=== PATIENT | male | born 1935 | race Caucasian/White ===

== ENCOUNTER 2020-07-10 18:24 | Emergency (ER) | payer MEDICARE, OTHER ==
[~2020-07-10 18:24] MED LIST: ASP325TEC; DILTIAZEM; DILTIAZEM HCL; NF-LISIN40
--- NOTE | 2020-07-10 18:37 | ED General ---
General Stated Complaint: SOA History of Present Illness Date Seen by Provider: Jul 10, 2020 Time Seen by Provider: 18:35 Initial Comments 85-year-old male presents with generalized malaise. Patient reports that he just doesn't feel well. That is "getting old" maybe a little cough but that is chronic. No fevers or chills, no complaints of nausea vomiting. No complaints of pain. Patient mainly states that he just is more fatigued than normal. Patient has no known sick contacts. Patient does have a history of pneumonia and COPD. No other systemic complaints. Patient reports that the fatigue has been for a couple days. Allergies and Home Medications Allergies Coded Allergies: No Known Drug Allergies (Unverified , 07/10/20) Patient Home Medication List Home Medication List Reviewed: Yes Review of Systems Review of Systems Constitutional: see HPI; No chills, No fever; malaise Respiratory: see HPI, cough, short of breath Cardiovascular: No chest pain, No palpitations Gastrointestinal: No abdominal pain, No diarrhea, No nausea, No vomiting Musculoskeletal: no symptoms reported Skin: no symptoms reported Psychiatric/Neurological: No Symptoms Reported Past Nosvwxl-Vnfius-Dfwchn Hx Past Med/Social Hx: Reviewed Nursing Past Med/Soc Hx Patient Social History Recent Foreign Travel: No Contact w/Someone Who Travel: No Past Medical History Reproductive Disorders: No Physical Exam Vital Signs Vital Signs - First Documented 07/10/20 18:40 Temp 36.9 Pulse 81 Resp 24 B/P (MAP) 157/81 (106) Capillary Refill : Height, Weight, BMI Height: '" Weight: lbs. oz. 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 Skin: Normal Color, Warm/Dry Focused Exam Lactate Level 07/10/20 18:46: Lactic Acid Level 3.89*H 07/10/20 20:49: Lactic Acid Level 2.56*H Lactic Acid Level Laboratory Tests Test 07/10/20 18:46 12/23/20 20:49 Lactic Acid Level 3.89 MMOL/L (0.50-2.00) *H 2.56 MMOL/L (0.50-2.00) *H Progress/Results/Core Measures Suspected Sepsis SIRS Temperature: Pulse: Respiratory Rate: Laboratory Tests 07/10/20 18:42: White Blood Count 3.1L Blood Pressure / Mean: 07/10/20 18:46: Lactic Acid Level 3.89*H 07/10/20 20:49: Lactic Acid Level 2.56*H Laboratory Tests 07/10/20 18:42: Creatinine 1.05, Platelet Count 145, Total Bilirubin 4.6H Results/Orders Lab Results Laboratory Tests Test 07/10/20 18:42 07/10/20 18:46 07/10/20 19:39 07/10/20 20:49 Range/Units White Blood Count 3.1 L 4.3-11.0 10^3/uL Red Blood Count 4.05 L 4.35-5.85 10^6/uL Hemoglobin 13.2 L 13.3-17.7 G/DL Hematocrit 40 40-54 % Mean Corpuscular Volume 98 80-99 FL Mean Corpuscular Hemoglobin 33 25-34 PG Mean Corpuscular Hemoglobin Concent 33 32-36 G/DL Red Cell Distribution Width 14.9 H 10.0-14.5 % Platelet Count 145 130-400 10^3/uL Mean Platelet Volume 12.9 H 7.4-10.4 FL Immature Granulocyte % (Auto) 1 % Neutrophils (%) (Auto) 73 42-75 % Lymphocytes (%) (Auto) 19 12-44 % Monocytes (%) (Auto) 8 0-12 % Eosinophils (%) (Auto) 0 0-10 % Basophils (%) (Auto) 0 0-10 % Neutrophils # (Auto) 2.3 1.8-7.8 X 10^3 Lymphocytes # (Auto) 0.6 L 1.0-4.0 X 10^3 Monocytes # (Auto) 0.2 0.0-1.0 X 10^3 Eosinophils # (Auto) 0.0 0.0-0.3 10^3/uL Basophils # (Auto) 0.0 0.0-0.1 10^3/uL Immature Granulocyte # (Auto) 0.0 0.0-0.1 10^3/uL Neutrophils % (Manual) 62 % Lymphocytes % (Manual) 12 % Monocytes % (Manual) 8 % Eosinophils % (Manual) 1 % Basophils % (Manual) 0 % Band Neutrophils 9 % Atypical Lymphocytes 5 % Reactive Lymphocytes 3 % Poikilocytosis 1+ Macrocytosis 1+ Elliptocytes SLIGHT Sodium Level 136 135-145 MMOL/L Potassium Level 4.2 3.6-5.0 MMOL/L Chloride Level 97 L 98-107 MMOL/L Carbon Dioxide Level 24 21-32 MMOL/L Anion Gap 15 H 5-14 MMOL/L Blood Urea Nitrogen 35 H 7-18 MG/DL Creatinine 1.05 0.60-1.30 MG/DL Estimat Glomerular Filtration Rate > 60 BUN/Creatinine Ratio 33 Glucose Level 112 H 70-105 MG/DL Calcium Level 9.2 8.5-10.1 MG/DL Corrected Calcium 9.1 8.5-10.1 MG/DL Magnesium Level 2.3 1.6-2.4 MG/DL Total Bilirubin 4.6 H 0.1-1.0 MG/DL Aspartate Amino Transf (AST/SGOT) 141 H 5-34 U/L Alanine Aminotransferase (ALT/SGPT) 171 H 0-55 U/L Alkaline Phosphatase 125 40-136 U/L Troponin I < 0.30 <0.30 NG/ML C-Reactive Protein 5.13 H <0.50 MG/DL Pro-B-Type Natriuretic Peptide 25877.0 H <75.0 PG/ML Total Protein 7.0 6.4-8.2 GM/DL Albumin 4.1 3.2-4.5 GM/DL Lactic Acid Level 3.89 *H 2.56 *H 0.50-2.00 MMOL/L Urine Color JANAY H Urine Clarity CLEAR Urine pH 5.5 5-9 Urine Specific [place] >=1.030 1.016-1.022 Urine Protein 1+ H NEGATIVE Urine Glucose (UA) NEGATIVE NEGATIVE Urine Ketones NEGATIVE NEGATIVE Urine Nitrite NEGATIVE NEGATIVE Urine Bilirubin 1+ H NEGATIVE Urine Urobilinogen 1.0 < = 1.0 MG/DL Urine Leukocyte Esterase NEGATIVE NEGATIVE Urine RBC (Auto) 1+ H NEGATIVE Urine RBC 0-2 /HPF Urine WBC 0-2 /HPF Urine Squamous Epithelial Cells 0-2 /HPF Urine Crystals NONE /LPF Urine Bacteria NEGATIVE /HPF Urine Casts PRESENT /LPF Urine Hyaline Casts 25-50 H /LPF Urine Mucus MODERATE H /LPF Urine Culture Indicated NO Micro Results Microbiology 07/10/20 Influenza Types A,B Antigen (VILMA) - Final, Complete My Orders Orders - ANGI TAPIA DO Chest Pa/Lat (2 View) (07/10/20 18:37) Comprehensive Metabolic Panel (07/10/20 18:37) Lactic Acid Analyzer (07/10/20 18:37) Magnesium (07/10/20 18:37) Procalcitonin (Pct) (07/10/20 18:37) Ua Culture If Indicated (07/10/20 18:37) Influenza A And B Antigens (07/10/20 18:37) Probnp Fs (07/10/20 18:37) Crp Fs (07/10/20 18:37) Troponin I Fs (07/10/20 18:37) Ed Iv/Invasive Line Start (07/10/20 18:37) Ekg Tracing (07/10/20 18:37) Monitor-Rhythm Ecg Trace Only (07/10/20 18:37) Coronavirus Sars-Cov-2 So 2018 (07/10/20 18:37) Cbc With Automated Diff (07/10/20 19:17) Blood Culture (07/10/20 19:19) Ed Iv/Invasive Line Start (07/10/20 19:19) Ns Iv 1000 Ml (Sodium Chloride 0.9%) (07/10/20 19:30) Manual Differential (07/10/20 18:42) Ct Abdomen/Pelvis W (07/10/20 19:33) Iohexol Injection (Omnipaque 350 Mg/Ml 1 (07/10/20 19:45) Received Contrast (Hold Metformin- Contr (07/10/20 19:45) Sodium Chloride Flush (Catheter Flush Sy (07/10/20 19:45) Ns (Ivpb) (Sodium Chloride 0.9% Ivpb Bag (07/10/20 19:45) Medications Given in ED Current Medications Medications Dose Ordered Sig/Vishal Route Start Time Stop Time Status Last Admin Dose Admin Iohexol 100 ml ONCE ONCE IV 07/10/20 19:45 07/10/20 19:46 DC 07/10/20 20:03 100 ML Sodium Chloride 10 ml NEEDED PRN IV 07/10/20 19:45 07/10/20 20:03 10 ML Sodium Chloride 100 ml ONCE ONCE IV 07/10/20 19:45 07/10/20 19:46 DC 07/10/20 20:03 100 ML Vital Signs/I&O 07/10/20 18:40 Temp 36.9 Pulse 81 Resp 24 B/P (MAP) 157/81 (106) Capillary Refill : Progress Note : Time: 21:26 Progress Note Patient reports he feeling better following IV fluids. He had a significant improvement in his lactic acid following treatment. I reviewed CT scanner x-ray and all other labs with patient. Patient was offered admission for observation and further evaluation at [facility]. Patient states he prefer to go home and will return if symptoms worsen. Patient voices understanding of risks. Discussed with him that likely is a viral illness. He does however have a slight elevation in his bilirubin however CT does not show any significant cholangitis, he has no pain in the right upper quadrant. There is some cholelithiasis. I believe this can be worked up outpatient at this time since patient's requesting discharge. I recommend he follow with his primary care provider as soon as possible for further outpatient evaluation. ECG Initial ECG Impression Date: Jul 10, 2020 Initial ECG Impression Time: 18:52 Initial ECG Rate: 89 Comment hr 89, paced, no acute changes, Diagnostic Imaging Diagonstic Imaging: Xray Plain Films/CT/US/NM/MRI: chest Comments [facility], [facility]. [place], [place] NAME: CRYSTAL CARNEY [facility] REC#: [id number] PT STATUS: REG ER : 1935 PHYSICIAN: ANGI TAPIA DO ADMIT DATE: 07/10/20/ER FS Signed Date of Exam:07/10/20 CHEST PA/LAT (2 VIEW) INDICATION: Malaise and shortness of breath. Comparison is made with prior examination from 01/27/2016. FINDINGS: There is cardiomegaly. There has been a previous median sternotomy. Pacemaker overlies the left hemithorax. There is no pleural fusion or pneumothorax. Mediastinum is unremarkable. There is some minimal discoid atelectasis in the lung bases. IMPRESSION: Cardiomegaly and minimal discoid atelectasis in the lung bases. Dictated by: Dictated on workstation # [id number] Dict: 07/10/201910 Trans: 07/10/201916 [facility] [id number] Interpreted by: NEGRO BELTRAN MD Electronically signed by: NEGRO BELTRAN MD 07/10/201916 [facility]. [place], [place] NAME: CRYSTAL CARNEY [facility] REC#: [id number] PT STATUS: REG ER : 1935 PHYSICIAN: ANGI TAPIA DO ADMIT DATE: 07/10/20/ER FS Signed Date of Exam:07/10/20 CT ABDOMEN/PELVIS W PROCEDURE: CT abdomen and pelvis with contrast. TECHNIQUE: Multiple contiguous axial images were obtained through the abdomen and pelvis after administration of intravenous contrast. Auto Exposure Controls were utilized during the CT exam to meet ALARA standards for radiation dose reduction. All CT scans use one or more of the following dose optimizing techniques: automated exposure control, MA and/or KvP adjustment based on patient size and exam type or iterative reconstruction. INDICATION: Shortness of breath, fatigue and weakness with increased bilirubin. FINDINGS: There is cardiomegaly. There is some patchy bibasilar atelectasis and/or pneumonitis. Liver is normal in size and without focal lesion. There is cholelithiasis. There is no biliary ductal dilatation. Spleen is normal. The pancreas and adrenal glands are unremarkable. There is a cyst in the left kidney. Right kidney is grossly normal. The aorta appears to be nonaneurysmal. Bowel gas pattern is nonspecific. There is no free air. There is no ascites. There are no focal inflammatory changes. Appendix is normal. Evaluation of the pelvic structures is markedly limited due to bilateral hip arthroplasties producing significant beam hardening artifact. IMPRESSION: 1. Patchy bibasilar atelectasis and/or pneumonitis. 2. Cardiomegaly. 3. Cholelithiasis. 4. No other acute abnormality in the abdomen or pelvis. Dictated by: Dictated on workstation # [id number] Dict: 07/10/202017 Trans: 07/10/202109 [facility] [id number] Interpreted by: NEGRO BELTRAN MD Electronically signed by: NEGRO BELTRAN MD 07/10/202109 Departure Impression Primary Impression: Viral syndrome Additional Impression: Cholelithiasis Qualified Codes: K80.80 - Other cholelithiasis without obstruction Disposition: HOME, SELF-CARE Condition: Stable Departure-Patient Inst. Referrals: SAM GONZALEZ MD (PCP) Primary Care Physician Patient Instructions: Viral Syndrome (DC), Gallstones (DC) Add. Discharge Instructions: Please follow-up with your primary care for recheck of symptoms Wednesday or Wednesday of next week Please have an outpatient ultrasound of her gallbladder next week if possible Return to the ER with any worsening of symptoms, nausea, vomiting and right upper quadrant pain, fevers or chills for reevaluation. Drink plenty of fluids ANGI TAPIA DO Jul 10, 2020 18:37
--- NOTE | 2020-07-10 19:16 | Diagnostic Imaging Report ---
INDICATION: Malaise and shortness of breath. Comparison is made with prior examination from 01/27/2016. FINDINGS: There is cardiomegaly. There has been a previous median sternotomy. Pacemaker overlies the left hemithorax. There is no pleural fusion or pneumothorax. Mediastinum is unremarkable. There is some minimal discoid atelectasis in the lung bases. IMPRESSION: Cardiomegaly and minimal discoid atelectasis in the lung bases. Dictated by: Dictated on workstation # [id number]
[2020-07-10 19:22] LABS: BASOPHILS % (AUTO) 0 % (0-10); EOSINOPHILS % (AUTO) 0 % (0-10); HEMATOCRIT 40 % (40-54); HEMOGLOBIN 13.2 G/DL (13.3-17.7); LYMPHOCYTES # (AUTO) 0.6 X 10^3 (1.0-4.0); LYMPHOCYTES % (AUTO) 19 % (12-44); MEAN CORPUSCULAR HEMOGLOBIN 33 PG (25-34); MEAN CORPUSCULAR HGB CONC 33 G/DL (32-36); MEAN CORPUSCULAR VOLUME 98 FL (80-99); MEAN PLATELET VOLUME 12.9 FL (7.4-10.4); MONOCYTES # (AUTO) 0.2 X 10^3 (0.0-1.0); MONOCYTES % (AUTO) 8 % (0-12); NEUTROPHILS # (AUTO) 2.3 X 10^3 (1.8-7.8); NEUTROPHILS % (AUTO) 73 % (42-75); PLATELET COUNT 145 10^3/uL (130-400); WHITE BLOOD COUNT 3.1 10^3/uL (4.3-11.0)
[2020-07-10 19:23] LABS: ATYPICAL LYMPHOCYTES 5 %; BAND NEUTROPHILS 9 %; BASOPHILS % (MANUAL) 0 %; EOSINOPHILS % (MANUAL) 1 %; LYMPHOCYTES % (MANUAL) 12 %; MONOCYTES % (MANUAL) 8 %; NEUTROPHILS % (MANUAL) 62 %; POIKILOCYTOSIS 1+; REACTIVE LYMPHOCYTES 3 %
[2020-07-10 19:24] LABS: ELLIPT/OVALOCYTES SLIGHT
[2020-07-10 19:26] LABS: CARBON DIOXIDE 24 MMOL/L (21-32); CHLORIDE 97 MMOL/L (98-107); POTASSIUM 4.2 MMOL/L (3.6-5.0); SODIUM 136 MMOL/L (135-145)
[2020-07-10 19:27] LABS: ALANINE AMINOTRANSFERASE 171 U/L (0-55); ALBUMIN 4.1 GM/DL (3.2-4.5); ALKALINE PHOSPHATASE 125 U/L (40-136); BILIRUBIN,TOTAL 4.6 MG/DL (0.1-1.0); BUN/CREATININE RATIO 33; CALCIUM 9.2 MG/DL (8.5-10.1); CREATININE SERUM 1.05 MG/DL (0.60-1.30); GFR ESTIMATED > 60; GLUCOSE 112 MG/DL (70-105); MAGNESIUM 2.3 MG/DL (1.6-2.4)
[2020-07-10] MEDS ORDERED: NS IV 1000 ML 1,000 ML IV SCH (19:30)
[2020-07-10] MEDS ORDERED: IOHEXOL 350 MG/ML 100 ML (OMNIPAQUE 350) VIAL IV ONE (19:45)
[2020-07-10] MEDS ORDERED: CATHETER FLUSH 10 ML SYR IV PRN (19:45)
[2020-07-10] MEDS ORDERED: HOLD METFORMIN - RECEIVED CONTRAST 20 ML VIAL IV SCH (19:45)
[2020-07-10] MEDS ORDERED: NS 100 ML (IVPB) BAG IV ONE (19:45)
[2020-07-10 20:01] LABS: COLOR,URINE AMBER
[2020-07-10 20:02] LABS: CLARITY,URINE CLEAR; GLUCOSE, URINE (UA) NEGATIVE (NEGATIVE); KETONES,URINE NEGATIVE (NEGATIVE); NITRITE,URINE NEGATIVE (NEGATIVE); PH,URINE 5.5 (5-9); PROTEIN,URINE 1+ (NEGATIVE)
[2020-07-10 20:05] LABS: BACTERIA,URINE NEGATIVE /HPF; BILIRUBIN,URINE 1+ (NEGATIVE); HYALINE CASTS, URINE 25-50 /LPF; LEUKOCYTE ESTERASE ,URINE NEGATIVE (NEGATIVE); RBC,URINE 0-2 /HPF; SQUAMOUS EPITHELIAL CELL,UR 0-2 /HPF; WBC,URINE 0-2 /HPF
--- NOTE | 2020-07-10 21:03 | Diagnostic Imaging Report ---
PROCEDURE: CT abdomen and pelvis with contrast. TECHNIQUE: Multiple contiguous axial images were obtained through the abdomen and pelvis after administration of intravenous contrast. Auto Exposure Controls were utilized during the CT exam to meet ALARA standards for radiation dose reduction. All CT scans use one or more of the following dose optimizing techniques: automated exposure control, MA and/or KvP adjustment based on patient size and exam type or iterative reconstruction. INDICATION: Shortness of breath, fatigue and weakness with increased bilirubin. FINDINGS: There is cardiomegaly. There is some patchy bibasilar atelectasis and/or pneumonitis. Liver is normal in size and without focal lesion. There is cholelithiasis. There is no biliary ductal dilatation. Spleen is normal. The pancreas and adrenal glands are unremarkable. There is a cyst in the left kidney. Right kidney is grossly normal. The aorta appears to be nonaneurysmal. Bowel gas pattern is nonspecific. There is no free air. There is no ascites. There are no focal inflammatory changes. Appendix is normal. Evaluation of the pelvic structures is markedly limited due to bilateral hip arthroplasties producing significant beam hardening artifact. IMPRESSION: 1. Patchy bibasilar atelectasis and/or pneumonitis. 2. Cardiomegaly. 3. Cholelithiasis. 4. No other acute abnormality in the abdomen or pelvis. Dictated by: Dictated on workstation # [id number]
--- NOTE | 2020-07-10 21:41 | NUR ---
PT'S CALLED AND GIVEN UPDATE. INFORMED THAT PT WAS BEING DISCHARGED AND GIVEN INSTRUCTIONS FOR THE PT. INFORMED THAT PT WAS OFFERED ADMISSION FOR OBSERVATION AND THAT THE PT STATED THAT HE FELT "MUCH BETTER" AND THAT HE WANTED TO GO HOME AND "TRY IT OUT". PT AND INSTRUCTED TO FOLLOW UP WITH PT'S PCP AND TO RETURN TO ED FOR ANY WORSENING CONDITION.
[2020-07-10 21:42] VITALS: BP 131/67
--- NOTE | 2020-07-12 13:10 | NUR ---
Notified of positive COVID test. Also told him to speak with the Dr about the BAM treatment.
== END 2020-07-10 21:42 | disposition home or self-care (01) ==
LOC: EDUNIT# 18:24 → ER FS 18:27
DX: U07.1 COVID-19 (principal); K80.20 Calculus of gallbladder without cholecystitis without obstruction
CPT/HCPCS: 36415; 71046; 74177; 80053; 81000; 83605; 83735; 83880; 84145; 84484; 85007; 85027; 86141; 87040; 87804 ×2; 93041; 99284; U0002; 87635

== ENCOUNTER → 2020-07-24 | Outpatient (CLI) | payer MEDICARE, OTHER ==
[2020-07-24 11:33] LABS: ALANINE AMINOTRANSFERASE 42 U/L (0-55); ALKALINE PHOSPHATASE 111 U/L (40-136); BILIRUBIN,TOTAL 1.4 MG/DL (0.1-1.0); BUN/CREATININE RATIO 39; CALCIUM 9.8 MG/DL (8.5-10.1); CARBON DIOXIDE 30 MMOL/L (21-32); CHLORIDE 99 MMOL/L (98-107); CREATININE SERUM 0.93 MG/DL (0.60-1.30); GFR ESTIMATED > 60; GLUCOSE 91 MG/DL (70-105); POTASSIUM 4.7 MMOL/L (3.6-5.0); SODIUM 136 MMOL/L (135-145)
[2020-07-24 11:34] LABS: ALBUMIN 3.8 GM/DL (3.2-4.5); HEMATOCRIT 37 % (40-54); HEMOGLOBIN 11.9 G/DL (13.3-17.7); MEAN CORPUSCULAR HEMOGLOBIN 32 PG (25-34); MEAN CORPUSCULAR HGB CONC 32 G/DL (32-36); MEAN CORPUSCULAR VOLUME 99 FL (80-99); PLATELET COUNT 121 10^3/uL (130-400); TOTAL PROTEIN 7.2 GM/DL (6.4-8.2); WHITE BLOOD COUNT 2.8 10^3/uL (4.3-11.0)
[2020-07-24 11:35] LABS: BASOPHILS % (AUTO) 1 % (0-10); EOSINOPHILS % (AUTO) 1 % (0-10); LYMPHOCYTES # (AUTO) 0.7 X 10^3 (1.0-4.0); LYMPHOCYTES % (AUTO) 27 % (12-44); MEAN PLATELET VOLUME 11.5 FL (7.4-10.4); MONOCYTES # (AUTO) 0.2 X 10^3 (0.0-1.0); MONOCYTES % (AUTO) 8 % (0-12); NEUTROPHILS # (AUTO) 1.8 X 10^3 (1.8-7.8); NEUTROPHILS % (AUTO) 63 % (42-75)
== END ==
LOC: LAB FS 10:14
PROVIDERS: ATTEND Family Medicine
DX: D61.810 Antineoplastic chemotherapy induced pancytopenia (principal)
CPT/HCPCS: 36415; 80053; 85025

== ENCOUNTER 2022-08-04 14:26 | Outpatient (RCR) | payer MEDICARE, OTHER ==
[2022-08-04 15:53] LABS: EOSINOPHILS % (AUTO) 0 % (0-10); MEAN PLATELET VOLUME 11.6 fL (9.0-12.2); MONOCYTES # (AUTO) 0.2 10^3/uL (0.0-1.0)
[2022-08-04 15:56] LABS: ABSOLUTE RETIC # 55 10e9/uL (24-90); BASOPHILS % (AUTO) 1 % (0-10); HEMATOCRIT 35 % (40-54); LYMPHOCYTES # (AUTO) 0.6 10^3/uL (1.0-4.0); LYMPHOCYTES % (AUTO) 20 % (12-44); MEAN CORPUSCULAR HEMOGLOBIN 35 pg (25-34); MEAN CORPUSCULAR HGB CONC 35 g/dL (32-36); MEAN CORPUSCULAR VOLUME 100 fL (80-99); MONOCYTES % (AUTO) 6 % (0-12); NEUTROPHILS % (AUTO) 71 % (42-75); PLATELET COUNT 95 10^3/uL (130-400); RETICULOCYTE % 1.58 % (0.50-2.40); WHITE BLOOD COUNT 2.9 10^3/uL (4.3-11.0)
== END 2022-08-18 | disposition home or self-care (01) ==
LOC: ONC 14:26
PROVIDERS: ATTEND Internal Medicine Hematology & Oncology
DX: D61.818 Other pancytopenia (principal)
CPT/HCPCS: 82607; 82728; 83540; 83550; 83615; 83883; 85025; 85045; G0463; 99204

== ENCOUNTER 2023-03-02 09:53 | Outpatient (RCR) | payer MEDICARE, OTHER ==
[2023-03-02 10:07] LABS: HEMOGLOBIN 10.6 g/dL (13.3-17.7); LYMPHOCYTES # (AUTO) 0.3 10^3/uL (1.0-4.0)
[2023-03-02 10:09] LABS: BASOPHILS % (AUTO) 1 % (0-10); EOSINOPHILS % (AUTO) 0 % (0-10); HEMATOCRIT 32 % (40-54); LYMPHOCYTES % (AUTO) 12 % (12-44); MEAN CORPUSCULAR HEMOGLOBIN 35 pg (25-34); MEAN CORPUSCULAR HGB CONC 33 g/dL (32-36); MEAN CORPUSCULAR VOLUME 106 fL (80-99); MONOCYTES # (AUTO) 0.1 10^3/uL (0.0-1.0); MONOCYTES % (AUTO) 5 % (0-12); NEUTROPHILS % (AUTO) 79 % (42-75); PLATELET COUNT 116 10^3/uL (130-400); WHITE BLOOD COUNT 2.6 10^3/uL (4.3-11.0)
[2023-03-02 10:32] LABS: ALBUMIN 3.8 GM/DL (3.2-4.5); BILIRUBIN,TOTAL 2.1 MG/DL (0.1-1.0); CALCIUM 9.5 MG/DL (8.5-10.1); CREATININE SERUM 1.43 MG/DL (0.60-1.30); POTASSIUM 4.6 MMOL/L (3.6-5.0); TOTAL PROTEIN 6.6 GM/DL (6.4-8.2)
== END 2023-03-18 | disposition home or self-care (01) ==
LOC: ONC 09:53
PROVIDERS: ATTEND Internal Medicine Hematology & Oncology
DX: C61 Malignant neoplasm of prostate (principal); D61.818 Other pancytopenia; I13.0 Hypertensive heart and chronic kidney disease with heart failure and stage 1 through stage 4 chronic kidney disease, or unspecified chronic kidney disease; N18.31 Chronic kidney disease, stage 3a; I50.21 Acute systolic (congestive) heart failure; E03.9 Hypothyroidism, unspecified
CPT/HCPCS: 80053; 85025; G0463; 36415; 99214

== ENCOUNTER → 2023-03-15 | Outpatient (CLI) | payer MEDICARE, OTHER ==
[2023-03-15 15:06] LABS: BILIRUBIN,URINE NEGATIVE (NEGATIVE); CLARITY,URINE CLEAR; COLOR,URINE YELLOW; GLUCOSE, URINE (UA) TRACE (NEGATIVE); KETONES,URINE NEGATIVE (NEGATIVE); LEUKOCYTE ESTERASE ,URINE NEGATIVE (NEGATIVE); NITRITE,URINE NEGATIVE (NEGATIVE); PH,URINE 5.5 (5-9); PROTEIN,URINE NEGATIVE (NEGATIVE)
[2023-03-15 15:11] LABS: BACTERIA,URINE NEGATIVE /HPF; RBC,URINE RARE /HPF
== END ==
LOC: PVFS 14:44
PROVIDERS: ATTEND Family Medicine
DX: R32 Unspecified urinary incontinence (principal); W17.89XA Other fall from one level to another, initial encounter
CPT/HCPCS: 81000